=== PATIENT | female | born 1980 | race Caucasian/White ===

== ENCOUNTER 2016-12-23 11:55 | Inpatient (IN) | payer OTHER ==
[~2016-12-23] VITALS: Ht 149.9 cm; Wt 107.7 kg
[~2016-12-23 11:55] MED LIST: ATARAX,VISTARIL50 MG PO; CARBIDOPA/LEVOD1 TA1 PO; CLARITIN10 MG PO; FLOVENT HFA10.6 GM IH; LASIX40 MG PO; METHOCARBAMOL750 M1 PO; METHOTREXATE S2.5 M1 PO; NATURE'S BLEND F1 MG PO; NORCO 7.5-3251 EACH PO; ONDANSETRON HYDR4 M1 PO; QUETIAPINE FUMA25 MG PO; REMERON30 M1 PO; VENTOLIN H0.09 MG/AC INH; ZOFRAN4 MG PO
[2016-12-23 14:20] LABS: BASO % 0.3 % (0.0-1.0); EOS # 0.2 10*3/uL (0.0-0.4); EOS % 1.7 % (1.0-4.0); HEMATOCRIT 40.8 % (37.0-47.0); HEMOGLOBIN 13.4 g/dl (12.0-16.0); LYMPH # 3.1 10*3/uL (1.3-4.4); LYMPH % 28.8 % (27.0-41.0); MEAN CELL VOLUME 87.9 fl (81.0-99.0); MEAN CORPUSCULAR HGB 28.9 pg (27.0-31.0); MEAN CORPUSCULAR HGB CONC 32.8 g/dl (33.0-37.0); MEAN PLATELET VOLUME 9.9 fl (9.6-12.3); MONO # 0.6 10*3/uL (0.1-1.0); MONO % 5.2 % (3.0-9.0); NEUT # 6.9 10*3/uL (2.3-7.9); NEUT % 63.7 % (47.0-73.0); PLATELET COUNT AUTOMATED 311 10*3/uL (130-400); RED BLOOD COUNT 4.64 10*6/uL (4.10-5.10); RED CELL DISTRI WIDTH 12.4 % (0-14.5); WHITE BLOOD COUNT 10.9 10*3/uL (4.8-10.8)
[2016-12-23 14:29] LABS: BILIRUBIN NEGATIVE (NEGATIVE); BLOOD NEGATIVE (NEGATIVE); CLARITY CLEAR (CLEAR); COLOR YELLOW (YELLOW); GLUCOSE NEGATIVE (NEGATIVE); KETONE TRACE (NEGATIVE); LEUKO ESTERASE NEGATIVE (NEGATIVE); NITRITE NEGATIVE (NEGATIVE); PROTEIN NEGATIVE (NEGATIVE); UROBILINOGEN 0.2 E.U./dl (0.2-1.0)
[2016-12-23 14:35] LABS: ALBUMIN 3.5 gm/dl (3.1-4.5); ALKALINE PHOSPHATASE 96 U/L (45-117); BILIRUBIN, TOTAL 0.4 mg/dl (0.2-1.0); BUN 9 mg/dl (7-24); CARBON DIOXIDE 29 mmol/L (21-32); CHLORIDE 102 mmol/L (98-107); EST GLOM FILT AFRICAN AMERICAN > 60 ml/min; GLUCOSE 72 mg/dL (65-99); POTASSIUM 3.9 mmol/L (3.5-5.1); SGOT/AST 17 IU/L (3-35); SGPT/ALT 26 U/L (12-78); SODIUM 136 mmol/L (136-145); TOTAL PROTEIN 7.5 gm/dL (6.4-8.2)
[2016-12-23 14:38] LABS: BACTERIA TRACE; WBC 0-2 wbc/hpf (0-5)
[2016-12-23 14:39] LABS: URINE REFLEX COMMENT NO (NO)
[2016-12-23 14:40] LABS: URINE AMPHETAMINES < 1000 (1000ng/ml); URINE BARBITURATES < 200 (200ng/ml); URINE COCAINE < 300 (300ng/ml)
[2016-12-23 16:00] VITALS: BP 138/66
[2016-12-23 19:49] VITALS: BP 134/74
[2016-12-24] VITALS: BP 136/76
[2016-12-24 04:00] VITALS: BP 139/74
[2016-12-24 07:06] LABS: HEPATITIS C VIRUS ANTIBODY <0.1 s/co (0.0-0.9); HIV 1+2 AB + HIV1 P24 AG Non Reactive (Non Reactive)
[2016-12-24 08:00] VITALS: BP 126/59
[2016-12-24 12:00] VITALS: BP 130/60
[2016-12-24 16:00] VITALS: BP 153/70
[2016-12-24 20:00] VITALS: BP 117/52
[2016-12-25] VITALS: BP 138/75
[2016-12-25 08:00] VITALS: BP 95/54
[2016-12-25 12:00] VITALS: BP 101/62
[2016-12-25 16:00] VITALS: BP 121/68
[2016-12-25 20:00] VITALS: BP 133/58
[2016-12-26] VITALS: BP 97/60
[2016-12-26 06:11] LABS: BASO # 0.1 10*3/uL (0.0-0.1); BASO % 0.5 % (0.0-1.0); EOS # 0.3 10*3/uL (0.0-0.4); EOS % 3.3 % (1.0-4.0); HEMATOCRIT 36.9 % (37.0-47.0); HEMOGLOBIN 12.3 g/dl (12.0-16.0); LYMPH # 3.8 10*3/uL (1.3-4.4); LYMPH % 37.9 % (27.0-41.0); MEAN CELL VOLUME 88.5 fl (81.0-99.0); MEAN CORPUSCULAR HGB 29.5 pg (27.0-31.0); MEAN CORPUSCULAR HGB CONC 33.3 g/dl (33.0-37.0); MEAN PLATELET VOLUME 10.4 fl (9.6-12.3); MONO # 0.6 10*3/uL (0.1-1.0); MONO % 6.1 % (3.0-9.0); NEUT # 5.2 10*3/uL (2.3-7.9); NEUT % 51.9 % (47.0-73.0); PLATELET COUNT AUTOMATED 244 10*3/uL (130-400); RED BLOOD COUNT 4.17 10*6/uL (4.10-5.10); RED CELL DISTRI WIDTH 12.4 % (0-14.5)
[2016-12-26 06:40] LABS: EST GLOM FILT AFRICAN AMERICAN > 60 ml/min
[2016-12-26 08:00] VITALS: BP 98/63
[2016-12-26 08:12] LABS: RHEUMATOID ARTHRITIS FACTOR <10.0 IU/mL (0.0-13.9)
== END 2016-12-26 10:40 | disposition home or self-care (01) | DRG 897 ==
LOC: 4E 11:55
PROVIDERS: Internal Medicine; Registered Nurse
DX: F11.23 Opioid dependence with withdrawal (principal); Z68.42 Body mass index [BMI] 45.0-49.9, adult; R00.1 Bradycardia, unspecified; M06.9 Rheumatoid arthritis, unspecified; D72.829 Elevated white blood cell count, unspecified; E66.01 Morbid (severe) obesity due to excess calories; M48.06 Spinal stenosis, lumbar region; F41.9 Anxiety disorder, unspecified; F17.210 Nicotine dependence, cigarettes, uncomplicated; Z71.6 Tobacco abuse counseling; Z90.49 Acquired absence of other specified parts of digestive tract; Z98.51 Tubal ligation status; Z88.1 Allergy status to other antibiotic agents; Z83.3 Family history of diabetes mellitus; Z82.49 Family history of ischemic heart disease and other diseases of the circulatory system; Z82.5 Family history of asthma and other chronic lower respiratory diseases

== ENCOUNTER 2017-07-30 15:44 | Inpatient (IN) | payer OTHER ==
[~2017-07-30] VITALS: Ht 149.9 cm; Wt 97.5 kg
[2017-07-30 16:00] VITALS: BP 112/64
[2017-07-30] MEDS ORDERED: BENTYL PO (17:16)
[2017-07-30 18:24] LABS: ALBUMIN 3.2 gm/dl (3.1-4.5); ALKALINE PHOSPHATASE 84 U/L (45-117); BUN 10 mg/dl (7-24); CHLORIDE 99 mmol/L (98-107); CREATININE 0.77 mg/dL (0.55-1.02); POTASSIUM 4.1 mmol/L (3.5-5.1); SGOT/AST 17 IU/L (3-35); SGPT/ALT 22 U/L (12-78); SODIUM 136 mmol/L (136-145); TOTAL PROTEIN 6.8 gm/dL (6.4-8.2)
[2017-07-30 18:25] LABS: ETHYL ALCOHOL < 3.0 mg/dl (<3)
[2017-07-30 18:27] LABS: BETA-HCG, QUANT < 1.0 mIU/mL (1-3)
[2017-07-30 18:36] LABS: BASO # 0.1 10*3/uL (0.0-0.1); BASO % 0.6 % (0.0-1.0); EOS # 0.3 10*3/uL (0.0-0.4); EOS % 3.9 % (1.0-4.0); HEMATOCRIT 38.9 % (37.0-47.0); HEMOGLOBIN 12.6 g/dl (12.0-16.0); LYMPH # 2.5 10*3/uL (1.3-4.4); LYMPH % 29.8 % (27.0-41.0); MEAN CELL VOLUME 88.4 fl (81.0-99.0); MEAN CORPUSCULAR HGB 28.6 pg (27.0-31.0); MEAN CORPUSCULAR HGB CONC 32.4 g/dl (33.0-37.0); MEAN PLATELET VOLUME 10.6 fl (9.6-12.3); MONO # 0.7 10*3/uL (0.1-1.0); MONO % 8.2 % (3.0-9.0); NEUT # 4.8 10*3/uL (2.3-7.9); NEUT % 57.3 % (47.0-73.0); PLATELET COUNT AUTOMATED 237 10*3/uL (130-400); RED CELL DISTRI WIDTH 12.8 % (0-14.5); WHITE BLOOD COUNT 8.3 10*3/uL (4.8-10.8)
[2017-07-30 19:10] LABS: BILIRUBIN NEGATIVE (NEGATIVE); BLOOD TRACE-INTACT (NEGATIVE); CLARITY SL CLOUDY (CLEAR); COLOR YELLOW (YELLOW); GLUCOSE NEGATIVE (NEGATIVE); KETONE NEGATIVE (NEGATIVE); LEUKO ESTERASE NEGATIVE (NEGATIVE); NITRITE NEGATIVE (NEGATIVE); SPECIFIC GRAVITY >= 1.030 (1.005-1.030); UROBILINOGEN 0.2 E.U./dl (0.2-1.0)
[2017-07-30 19:19] LABS: URINE AMPHETAMINES < 1000 (1000ng/ml); URINE BARBITURATES < 200 (200ng/ml); URINE BENZODIAZEPINES < 200 (200ng/ml); URINE CANNABINOIDS (THC) < 50 (50ng/ml); URINE COCAINE < 300 (300ng/ml); URINE METHADONE < 300 (300ng/ml); URINE OPIATES < 300 (300ng/ml)
[2017-07-30 19:20] LABS: URINE PHENCYCLIDINE < 25 (25ng/ml)
[2017-07-30 19:22] LABS: BACTERIA 4+; EPITHELIAL CELLS 16-20; MUCOUS TRACE
[2017-07-30 20:00] VITALS: BP 99/54
[2017-07-31] VITALS: BP 118/69
[2017-07-31 04:00] VITALS: BP 128/75
[2017-07-31 08:00] VITALS: BP 138/72
[2017-07-31 12:00] VITALS: BP 126/64
[2017-07-31 16:00] VITALS: BP 129/63
[2017-08-01] VITALS: BP 136/67
[2017-08-01 08:00] VITALS: BP 105/48
[2017-08-01 16:00] VITALS: BP 93/54
[2017-08-02] VITALS: BP 104/54
[2017-08-02 06:41] LABS: BASO % 0.4 % (0.0-1.0); EOS # 0.4 10*3/uL (0.0-0.4); EOS % 3.7 % (1.0-4.0); HEMATOCRIT 40.7 % (37.0-47.0); HEMOGLOBIN 13.3 g/dl (12.0-16.0); LYMPH # 3.5 10*3/uL (1.3-4.4); LYMPH % 34.2 % (27.0-41.0); MEAN CELL VOLUME 87.7 fl (81.0-99.0); MEAN CORPUSCULAR HGB 28.7 pg (27.0-31.0); MEAN CORPUSCULAR HGB CONC 32.7 g/dl (33.0-37.0); MEAN PLATELET VOLUME 10.5 fl (9.6-12.3); MONO # 0.8 10*3/uL (0.1-1.0); MONO % 7.9 % (3.0-9.0); NEUT # 5.4 10*3/uL (2.3-7.9); NEUT % 53.5 % (47.0-73.0); PLATELET COUNT AUTOMATED 251 10*3/uL (130-400); RED BLOOD COUNT 4.64 10*6/uL (4.10-5.10); WHITE BLOOD COUNT 10.1 10*3/uL (4.8-10.8)
[2017-08-02 07:11] LABS: CREATININE 0.75 mg/dL (0.55-1.02)
[2017-08-02 08:00] VITALS: BP 117/57
[2017-08-02] MEDS ORDERED: ROPINIROLE HYD0.5 MG PO (10:42)
== END 2017-08-02 10:49 | disposition home or self-care (01) | DRG 897 ==
LOC: 5E 15:44
PROVIDERS: Internal Medicine Hospice and Palliative Medicine
DX: F11.23 Opioid dependence with withdrawal (principal); E66.01 Morbid (severe) obesity due to excess calories; Z68.41 Body mass index [BMI] 40.0-44.9, adult; F41.9 Anxiety disorder, unspecified; M06.9 Rheumatoid arthritis, unspecified; J45.20 Mild intermittent asthma, uncomplicated; K58.0 Irritable bowel syndrome with diarrhea; M48.00 Spinal stenosis, site unspecified; M54.30 Sciatica, unspecified side; F43.10 Post-traumatic stress disorder, unspecified; Z71.6 Tobacco abuse counseling; Z72.0 Tobacco use; Z98.891 History of uterine scar from previous surgery; Z82.49 Family history of ischemic heart disease and other diseases of the circulatory system; Z83.49 Family history of other endocrine, nutritional and metabolic diseases; Z82.61 Family history of arthritis; Z84.89 Family history of other specified conditions; Z88.1 Allergy status to other antibiotic agents